=== PATIENT | male | born 1960 | race Caucasian/White ===

== ENCOUNTER 2017-08-17 08:26 | Emergency (ER) | payer OTHER ==
[~2017-08-17] VITALS: Ht 170.2 cm; Wt 105.2 kg
[2017-08-17] MEDS ORDERED: NOHOMEMEDICATIONS (08:35)
[2017-08-17] MEDS ORDERED: HYDROCODON-ACE1 EAC7 PO (09:34)
[2017-08-17] MEDS ORDERED: KEFLEX500 M1 PO (09:34)
[2017-08-17 09:41] VITALS: BP 180/110
== END 2017-08-17 09:43 | disposition home or self-care (01) ==
LOC: M.ERS 08:26
DX: S61.411A Laceration without foreign body of right hand, initial encounter (principal); I10 Essential (primary) hypertension; W23.0XXA Caught, crushed, jammed, or pinched between moving objects, initial encounter; Y93.89 Activity, other specified; Y92.89 Other specified places as the place of occurrence of the external cause; Y99.8 Other external cause status